=== PATIENT | female | born 1960 | race Caucasian/White ===

== ENCOUNTER 2016-11-06 10:24 | Emergency (ER) | payer MEDICARE ==
[2016-11-06] MEDS ORDERED: NS 0.9% 1000 ML* 1,000 ML IV ONE (12:38)
[2016-11-06] MEDS ORDERED: cefTRIAXone VIAL(*) 1,000 MG VIAL IVPB ONE (12:38)
[2016-11-06 13:46] VITALS: BP 123/81
--- NOTE | 2016-11-06 14:12 | UC ---
Tylor Gunn Adam, scribed for Estefania Moss DO on 11/06/16 at 1139 . Complaint Female HPI - HPI Summary HPI Summary: Pt is a 56 year old female presenting with c/o severe abdominal/flank pain on both sides (it was worse on the left earlier). She states that the pain is 15/ 10 currently and was 20/10 yesterday. She also reports hematuria and burning during urination. She also c/o fever (Tmax 100.9 F). She denies N/V/D, CP, SOB, PLASCENCIA, rash, cough, ear ache, or any other symptoms. She states that she began having UTI sx 6 days ago. Her PCP prescribed her Z-Marc because that's what she usually takes for UTI's. She states that she gets UTI's regularly (2-3 per year) ; the most recent one was approximately 6 months ago. She states that she often gets them after having sexual intercourse (as happened this time as well), although she urinates and showers afterwards. She has seen a specialist in [place]. - History Of Current Complaint Chief Complaint: UCGU Stated Complaint: FLANK PAIN Time Seen by Provider: 11/06/16 11:15 Hx Obtained From: Patient Onset/Duration: Gradual Onset, Lasting Days, Still Present Timing: Constant Severity Initially: Moderate Severity Currently: Moderate Pain Intensity: 10 Pain Scale Used: 0-10 Numeric Character: Sharp, Dull, Burning Aggravating Factor(s): Movement, Urination Alleviating Factor(s): Nothing Associated Signs And Symptoms: Positive: Fever, Back Pain - Flank pain. Negative: Nausea, Vomiting(# Of Episodes =) - Allergies/Home Medications Allergies/Adverse Reactions: Allergies Allergy/AdvReac Type Severity Reaction Status Date / Time Latex Allergy Rash Verified 04/28/16 18:01 Penicillins AdvReac Nausea And Verified 04/28/16 18:01 Vomiting Sulfa Antibiotics AdvReac Nausea And Verified 04/28/16 18:01 Vomiting NSAID's Allergy See Comment Uncoded 04/28/16 18:01 Home Medications: Home Medications Aspirin [Aspirin 81 MG TAB] 11/06/16 [History] Azithromycin TAB* [Zithromax TAB (Z-MARC) 250 mg #6 tabs] 11/06/16 [History] Ibuprofen TAB* [Advil TAB*] 11/06/16 [History] Multiple Vitamin [Multi Vitamin] 11/06/16 [History] Vitamin B Complex TAB* [Complex B-100*] 11/06/16 [History] PMH/Surg Hx/FS Hx/Imm Hx Endocrine History Of: Reports: Diabetes - type 2, Thyroid Disease Cardiovascular History Of: Reports: Cardiac Disorders - tachy; left ventr dysfunction Denies: Hypertension, Pacemaker/ICD, Congestive Heart Failure Respiratory History Of: Reports: Asthma, Bronchitis Cancer History Of: Denies: Breast Cancer - Surgical History Surgical History: Yes Surgery Procedure, Year, and Place: HYSTERECTOMY. CARDIAC CATH. tonsillectomy - Family History Known Family History: Negative: Cardiac Disease, Hypertension, Renal Disease - Social History Occupation: Disabled Lives: With Family - Daughter Alcohol Use: Occasionally Substance Use Type: None Smoking Status (MU): Former Smoker When Did the Patient Quit Smoking/Using Tobacco: 27 yrs ago Review of Systems Constitutional: Fever ENT: Negative Respiratory: Negative Cardiovascular: Negative Gastrointestinal: Abdominal Pain, Other - flank pain Genitourinary: Dysuria - Pain during urination, Hematuria, Other - Flank pain All Other Systems Reviewed And Are Negative: Yes Physical Exam Triage Information Reviewed: Yes Appearance: Well-Appearing, Pain Distress - mod-severe, Obese Vital Signs: Initial Vital Signs Temp 98 F 11/06/16 11:12 Pulse 95 11/06/16 11:12 Resp 16 11/06/16 11:12 BP 135/78 11/06/16 11:12 Pulse Ox 99 11/06/16 11:12 Vital Signs Reviewed: Yes Eyes: Positive: Conjunctiva Clear. Negative: Discharge ENT: Positive: Normal ENT inspection, Hearing grossly normal, Pharynx normal, Pharyngeal erythema Neck exam: Normal Neck: Positive: Supple Respiratory: Positive: Chest non-tender, Lungs clear, Normal breath sounds, No respiratory distress Cardiovascular: Positive: RRR, No Murmur Abdomen Description: Positive: Soft, CVA Tenderness (R), CVA Tenderness (L), Guarding. Negative: Nontender - exquisite, diffuse Bowel Sounds: Positive: Present Musculoskeletal Exam: Normal Neurological: Positive: Alert, Muscle Tone Normal Psychological Exam: Normal Psychological: Positive: Age Appropriate Behavior Skin Exam: Normal Skin: Positive: Other - Warm, dry, normal color Complaint Female Dx - Differential Dx/Diagnosis Differential Diagnosis/HQI/PQRI: Pelvic Inflammatory Disease, Renal Colic, Sexually Transmitted Disease, Ureteral Stone, Urinary Tract Infection Provider Diagnoses: hematuria, flank pain, pyelo, r/o stone - Physician Notifications Discussed Patient Care With: [facility] at 12:34. Discharge - Discharge Plan Condition: Stable Disposition: TRANS HIGHER LVL OF CARE FAC Referrals: Olga Mckinnon RN [Primary Care Provider] - Lab Results - Lab Results Lab Results: 11/06/16 11:15 POC Urine Color Other POC Urine Clarity Cloudy POC Urine pH 5.5 POC Ur Specif [place] 1.010 POC Urine Protein 2+ H POC Ur Glucose (UA) 3+ H POC Urine Ketones Negative POC Urine Blood 3+ H POC Urine Nitrite Positive H POC Urine Bilirubin Negative POC Urine Urobilinogen 0.2 POC U Leukocyte Esteras 1+ H The documentation as recorded by the Tylor skinner Adam accurately reflects the service I personally performed and the decisions made by , Estefania Moss DO.
== END 2016-11-06 14:08 | disposition short-term general hospital (02) ==
LOC: UCEAST 10:24
DX: R31.9 Hematuria, unspecified (principal); M54.5 Low back pain; N10 Acute pyelonephritis; Z87.440 Personal history of urinary (tract) infections; E11.9 Type 2 diabetes mellitus without complications; E07.9 Disorder of thyroid, unspecified; J45.909 Unspecified asthma, uncomplicated; Z88.6 Allergy status to analgesic agent; Z88.0 Allergy status to penicillin; Z88.2 Allergy status to sulfonamides; Z90.710 Acquired absence of both cervix and uterus; Z87.891 Personal history of nicotine dependence
CPT/HCPCS: 81003; 87077; 87086; 87186; 96360; 99213; G0463; J0696

== ENCOUNTER 2016-11-06 14:18 | Inpatient (IN) | payer MEDICARE ==
[2016-11-06 15:13] LABS: Hematocrit 41 % (35-47); Hemoglobin 13.7 g/dl (12.0-16.0); Mean Corpuscular HGB Conc 33 g/dl (31-36); Mean Corpuscular Hemoglobin 29 pg (27-31); Mean Corpuscular Volume 86 fL (80-97); Mean Platelet Volume 8 um3 (7.4-10.4); Red Blood Count 4.76 10^6/ul (4.0-5.4); Red Cell Distribution Width 13 % (10.5-15); White Blood Count 6.1 10^3/ul (3.5-10.8)
[2016-11-06 15:21] LABS: ALT 12 U/L (7-52); Albumin 3.8 g/dL (3.2-5.2); Alkaline Phosphatase 87 U/L (34-104); BUN/Creatinine Ratio 23.8 (8-20); Blood Urea Nitrogen 19 mg/dL (6-24); C Reactive Protein 106.03 mg/L (< 5.00); CO2 Carbon Dioxide 25 mmol/L (22-32); Calcium 9.4 mg/dL (8.6-10.3); Chloride 97 mmol/L (101-111); EGFR African American 95.1 (>60); EGFR Non-African American 73.9 (>60); Globulin 3.3 g/dL (2-4); Glucose 376 mg/dL (70-100); Lipase 16 U/L (11.0-82.0); Sodium 130 mmol/L (133-145); Total Protein 7.1 g/dL (6.4-8.9)
[2016-11-06] MEDS ORDERED: Morphine INJ* 4 MG/ML 1 ML SYRINGE IV ONE (15:28)
[2016-11-06] MEDS ORDERED: Ondansetron INJ* 2 MG/ML VIAL IV ONE (15:28)
[2016-11-06] MEDS ORDERED: Ketorolac INJ* 30 MG/ML 1 ML VIAL IV PUSH ONE (15:37)
--- NOTE | 2016-11-06 17:07 | RAD ---
INDICATION: RIGHT lower quadrant and flank pain. Cholelithiasis. Post hysterectomy for early uterine cancer. COMPARISON: April 11, 2016 ultrasound and September 04, 2014 CT. TECHNIQUE: Multidetector CT images were obtained from the lung bases to the ischial tuberosities. Evaluation of the viscera is limited without IV contrast. Multiplanar reformation. REPORT: Unremarkable visualized inferior thorax. 22 cm cephalocaudal liver without significant change. The liver is isodense to the spleen without definitive fatty infiltration. Negative for conspicuous focal hepatic lesions within limits of unenhanced exam. Small calcified stone at the fundus of the gallbladder. Negative for biliary dilatation. Unremarkable pancreas. Mild splenomegaly without change. Negative for CT abnormality of the upper GI, small bowel, retrocecal appendix, or colon. Negative for ascites, free air, or significant hernias. Normal adrenal glands. Negative for urolithiasis or hydronephrosis. Unremarkable nondilated ureters and urinary bladder. Phleboliths noted immediately adjacent to the distal ureters and ureteral vesicular junction. Post hysterectomy. No gross abnormality of the vaginal cuff. Unremarkable adnexal regions. Negative for lymphadenopathy. Mild atrophy chronic calcification of normal diameter abdominal aorta and iliac arteries. Physiologic partial distention of the IVC. Negative for suspicious osseous lesions. A few densely sclerotic foci consistent with bone islands are noted most prominent at the RIGHT acetabulum and femoral head. IMPRESSION: 1. No significant change in hepatosplenomegaly. 2. Probable small stone at the gallbladder corresponding with previous ultrasound finding. No additional CT abnormality of the gallbladder or biliary dilatation. 3. Negative for obstructive uropathy. 4. No acute abdominal pelvic process evident.
[2016-11-06 18:36] LABS: Urine Bacteria Absent (Absent); Urine Bilirubin Negative (Negative); Urine Glucose 3+(>=500 mg/dL) (Negative); Urine Nitrite Positive (Negative)
[2016-11-06] MEDS ORDERED: cefTRIAXone(*) 1 GM in NS 0.9% 50 ML* 50 ML IVPB ONE (18:52)
[2016-11-06] MEDS ORDERED: Insulin REGULAR(*) 1 UNITS UNIT SUBCUT ONE (18:58)
[2016-11-06] MEDS ORDERED: Dextrose 50% Syringe 50 ML* 25 GM/50 ML SYRINGE IV PUSH PRN (19:34)
[2016-11-06] MEDS ORDERED: Acetaminophen TAB* 325 MG PO PRN (19:40)
[2016-11-06] MEDS: NS 0.9% 1000 ML* 1,000 ML IV SCH (20:16)
[2016-11-06] MEDS ORDERED: Ibuprofen TAB* 400 MG PO PRN (20:35)
--- NOTE | 2016-11-06 21:28 | HP ---
HISTORY AND PHYSICAL: DATE OF ADMISSION: 11/06/16 PRIMARY CARE PHYSICIAN: Olga Martinez NP ATTENDING PHYSICIAN: Meir Villatoro MD * (dictation provided by Leslie Ying NP) CHIEF COMPLAINT: Flank and abdominal pain with hematuria. HISTORY OF PRESENT ILLNESS: Ms. Varma is a 56-year-old female with a past medical history of diabetes; cardiomyopathy, which is nonischemic; and fibromyalgia who presents today to the hospital with concern for bilateral flank and abdominal pain as well as hematuria. Ms. Varma states that she first started feeling unwell on Monday with hematuria and burning with urination. She suspected that she had a urinary tract infection based on her history of the same. She called her primary care provider, who prescribed her azithromycin. She took this for 2 days. She thought she was feeling better, but then this morning, she had the sudden onset of severe bilateral flank pain and lower abdominal pain and then return of hematuria. She went to [facility], where she was evaluated and suspected that she likely had pyelonephritis and therefore, she was transitioned to [facility] emergency room. The patient states she had a fever to 100.9 at home. She has had no other symptoms. She denies chest pain, shortness of breath, or nausea. She has been having poor oral intake, but only due to poor appetite. She denies diarrhea. In the emergency room, Ms. Varma is confirmed to have urinary tract infection with positive nitrites, 2+ leuk esterase. Her labs are otherwise remarkable for a C-reactive protein of 106.03. She has no leukocytosis. She is not febrile and she is not tachycardic. Her blood pressure is stable. PAST MEDICAL HISTORY: 1. History of frequent UTIs. 2. Insulin-dependent diabetes mellitus. 3. History of cardiomyopathy with left ventricular dysfunction, although she states her most recent ejection fraction was normal. 4. Arthritis. 5. Asthma. 6. Hypothyroidism. 7. Fibromyalgia. 8. JOSE ALFREDO-BSO. 9. Tonsillectomy. 10. Autonomic neuropathy. MEDICATIONS: 1. Invokana 300 mg p.o. daily. 2. Azithromycin 250 mg p.o. daily. 3. Ibuprofen 200 mg p.o. q.8 hours. 4. P.R.N. multivitamin with minerals 1 tab daily. 5. Phenazopyridine 100 mg p.o. t.i.d. 6. Vitamin B complex daily. 7. Aspirin 81 mg daily. 8. Lantus insulin 14 units subcutaneously at bedtime. 9. Levothyroxine 100 mcg p.o. daily. ALLERGIES: LATEX, PENICILLIN, and SULFA ANTIBIOTICS. FAMILY HISTORY: Mother at 86 from old age. Father at 67 related to lung cancer. She has 2 brothers and 2 sisters, both have diabetes. One of her brothers also has multiple sclerosis. SOCIAL HISTORY: No report of tobacco or drug use. The patient states she drinks infrequently and that Kathryn Quesada would be her health care proxy. REVIEW OF SYSTEMS: A 14-point review of systems was completed with Ms. Varma and all those not mentioned above were negative. PHYSICAL EXAMINATION GENERAL: Ms. Varma is sitting at the bed. She is in no acute distress. She is calm and cooperative on my examination. VITAL SIGNS: Temperature 99.4, pulse rate 99, respiratory rate 16, O2 saturation 96% on room air, and blood pressure 102/60. LUNGS: Clear to auscultation bilaterally with no accessory muscle use and good aeration. HEART: S1, S2. No murmur, rub, or gallop and regular. ABDOMEN: Soft and nontender with bowel sounds positive x4. EXTREMITIES: No cyanosis or edema. SKIN: Intact. NEURO: She is alert and she is oriented x3. She moves all extremities equally. There is no facial asymmetry or focal weakness. Extraocular movements are intact. DIAGNOSTIC STUDIES/LAB DATA: WBC 6.1, hemoglobin 13.7, hematocrit 41, and platelet count 173. Sodium 130, potassium 4.8, chloride 97, serum bicarbonate 25, BUN 19, creatinine 0.80, glucose 376, and lactic acid 1.0. CRP 106.03. Urine shows positive nitrites and 3+ leuk esterase. The patient had a CT abdomen and pelvis with oral contrast, but did refuse IV contrast. The results are as follows, "no significant change in hepatosplenomegaly, probable small stone at the gallbladder corresponding with previous ultrasound finding, no additional CT abnormalities of the gallbladder or biliary dilatation, negative for obstructive uropathy, and no acute abdominal pelvic process is evident." ASSESSMENT AND PLAN: Ms. Varma is a 56-year-old female with a past medical history of fibromyalgia and cardiomyopathy, but now with a normal ejection fraction as well as frequent urinary tract infections who presents today to the hospital with concern for flank pain and hematuria, found to have a urinary tract infection. Our plan is for observation in the hospital for the followin. Urinary tract infection: The patient is at high risk for complications due to her diabetes. She has no evidence of pyelonephritis on CT scan. She has no leukocytosis. She has no fever. Our plan will be for ceftriaxone while we await urine culture results. Lactic acid has been ordered as blood cultures. 2. Type 2 diabetes: The patient's blood pressure is quite elevated at almost 400 now. Plan to continue her home Lantus and to provide lispro sliding scale with meals. Also, plan to check hemoglobin A1c. 3. Hypothyroidism: Continue levothyroxine. 4. DVT prophylaxis: Heparin subcu. 5. Disposition: To the medical floor. TIME SPENT: Approximately 60 minutes was spent in the admission of this patient , more than half of the time was spent with the patient at the bedside reviewing the events leading up to this hospitalization, performing the physical examination, and reviewing my plan of care. LESLIE YING NP CC: Olga Martinez [place]* [id number]/[facility] #: [id number] NOEMY
[2016-11-06] MEDS: Insulin GLARGINE(*) 1 UNITS UNIT SUBCUT SCH (21:56)
[2016-11-06] MEDS: Heparin VIAL(*) 5000 UNITS/ML VIAL (FIVE THOUSAND) SUBCUT SCH (21:57)
[2016-11-07] MEDS ORDERED: Ondansetron INJ* 2 MG/ML VIAL IV PRN (03:12)
[2016-11-07] MEDS: Levothyroxine TAB* 100 MCG TAB PO SCH (06:10)
[2016-11-07] MEDS: Heparin VIAL(*) 5000 UNITS/ML VIAL (FIVE THOUSAND) SUBCUT SCH ×3 (06:10→21:44)
[2016-11-07] MEDS: NS 0.9% 1000 ML* 1,000 ML IV SCH ×2 (06:11→16:38)
[2016-11-07 06:38] LABS: Hematocrit 38 % (35-47); Hemoglobin 12.7 g/dl (12.0-16.0); Mean Corpuscular HGB Conc 34 g/dl (31-36); Mean Corpuscular Hemoglobin 29 pg (27-31); Mean Corpuscular Volume 86 fL (80-97); Mean Platelet Volume 8 um3 (7.4-10.4); Red Blood Count 4.39 10^6/ul (4.0-5.4); Red Cell Distribution Width 13 % (10.5-15); White Blood Count 8.6 10^3/ul (3.5-10.8)
[2016-11-07 07:22] LABS: EGFR Non-African American 59.9 (>60); Potassium 3.9 mmol/L (3.5-5.0)
[2016-11-07] MEDS: Aspirin EC Low Dose* 81 MG TAB.EC PO SCH (09:38)
[2016-11-07] MEDS: Insulin LISPRO* 1 UNITS UNIT SUBCUT SCH ×3 (09:38→17:38)
--- NOTE | 2016-11-07 16:26 | PN ---
Subjective Date of Service: 11/07/16 Interval History: This is a 56 yo female with IDDM who presented with dysuria, hematuria and abdominal pain. No significant leukocytosis but complaints of flank pain. Empirically treated for pyelonephritis with ceftriaxone. 2/2 blood culture bottles positive for E Coli. Today, patient reports significant improvement in her flank pain. She reports generalized fatigue. No CP, some suprapubic pain. No further hematuria. Objective Active Medications: Acetaminophen (Tylenol Tab*) 650 mg PO Q6H PRN PRN Reason: pain/fever Last Admin: 11/07/16 01:54 Dose: 650 mg Aspirin (Aspirin Ec Low Dose*) 81 mg PO DAILY [facility] Last Admin: 11/07/16 09:38 Dose: 81 mg Dextrose (D50w Syringe 50 Ml*) 12.5 gm IV PUSH .FOR FS < 60 - SS PRN PRN Reason: FS < 60 Heparin Sodium (Porcine) (Heparin Vial(*)) 5,000 units SUBCUT Q8HR [facility] Last Admin: 11/07/16 13:49 Dose: 5,000 units Ceftriaxone Sodium 1,000 mg/ (Sodium Chloride) 50 mls @ 200 mls/hr IVPB Q24H [facility] Sodium Chloride (Ns 0.9% 1000 Ml*) 1,000 mls @ 100 mls/hr IV PER RATE [facility] Last Admin: 11/07/16 06:11 Dose: 100 mls/hr Ibuprofen (Motrin Tab*) 200 mg PO Q6H PRN PRN Reason: PAIN Insulin Glargine (Lantus(*)) 42 units SUBCUT BEDTIME [facility] Last Admin: 11/06/16 21:56 Dose: 42 units Insulin Human Lispro (Humalog*) 2 units SUBCUT AC [facility] PRN Reason: Protocol Levothyroxine Sodium (Synthroid Tab*) 100 mcg PO DAILY@0600 [facility] Last Admin: 11/07/16 06:10 Dose: 100 mcg Ondansetron HCl (Zofran Inj*) 4 mg IV Q6H PRN PRN Reason: NAUSEA Last Admin: 11/07/16 03:27 Dose: 4 mg Vital Signs: Temp Pulse Resp BP Pulse Ox 99.5 F 78 16 108/51 96 11/07/16 15:38 11/07/16 15:38 11/07/16 15:38 11/07/16 15:38 11/07/16 15:38 Oxygen Devices in Use Now: None Appearance: Well appearing, in NAD Neck: NL Appearance and Movements; NL JVP Respiratory: Symmetrical Chest Expansion and Respiratory Effort, Clear to Auscultation Cardiovascular: NL Sounds; No Murmurs; No JVD, RRR Abdominal: - - abd soft, suprapubic TTP, no CVA TTP Extremities: No Edema Skin: No Rash or Ulcers Neurological: Alert and Oriented x 3 Result Diagrams: 11/07/16 06:15 11/07/16 06:15 Additional Lab and Data: Vital Signs: Temp Pulse Resp BP Pulse Ox 99.5 F 78 16 108/51 96 11/07/16 15:38 11/07/16 15:38 11/07/16 15:38 11/07/16 15:38 11/07/16 15:38 Diagnostic Imaging: CT abd/pelvis - no contrast - NAD Assess/Plan/Problems-Billing Assessment: This is a 56 yo female with IDDM, non-ischemic CM and fibromyalgia who presented with abd pain, hematuria and dysuria. Admitted with UTI, now bacteremic. - Patient Problems (1) Septicemia Comment: Secondary to EColi bacteremia of suspected urinary source Cont ceftriaxone (2) UTI (urinary tract infection) Comment: With EColi bacteremia Clinical improvement Cont ceftriaxone (3) IDDM (insulin dependent diabetes mellitus) Comment: Poorly controlled HgbA1c 10.5% Patient has been refusing SS Humalog as she is afraid of hypoglycemia She now agrees to 2U at mealtime if glucose >250mg/dl Cont Lantus Hold Invokana (4) Non-ischemic cardiomyopathy Comment: Last EF 45-50% from 2010 (5) Fibromyalgia (6) Full code status (7) DVT prophylaxis Comment: SubQ Heparin Status and Disposition: Inpatient. Anticipate dc in 1-2 days
[2016-11-07] MEDS ORDERED: Acetaminophen SUPP* 650 MG SUPP PR PRN (17:52)
[2016-11-07] MEDS ORDERED: cefTRIAXone VIAL(*) 1,000 MG in NS 0.9% 50 ML* 50 ML IVPB SCH (18:00)
--- NOTE | 2016-11-07 18:15 | ED ---
Ayan Gunn Claudia, scribed for Andrade Palmer MD on 11/06/16 at 1537 . GI/ HPI - HPI Summary HPI Summary: 56 year old female presents to the ED from [facility] with bilateral flank pain(left side more so) and RLQ pain. Pt notes sudden onset Monday this sharp pain began. Pt notes the pain has been fairly constant, she states associated Sx of hematuria, dysuria,fever, and chills. Pt has taken ibuprofen for the pain but does not like taking other pain medications. Pt denies NVD, CP, difficulty breathing, and vaginal bleeding. NO PMHx of Kidney Stones. - History of Current Complaint Chief Complaint: EDAbdPain Time Seen by Provider: 11/06/16 14:23 Stated Complaint: ABD PAIN COMING FROM [facility] Hx Obtained From: Patient Onset/Duration: Started Days Ago, Still Present Timing: Constant, Lasting Days Location of Pain: RLQ, Flank Pain Characteristics: Sharp Associated Signs and Symptoms: Positive: Fever, Hematuria, Dysuria, Abdominal Pain - Allergy/Home Medications Allergies/Adverse Reactions: Allergies Allergy/AdvReac Type Severity Reaction Status Date / Time Latex Allergy Rash Verified 04/28/16 18:01 Penicillins AdvReac Nausea And Verified 04/28/16 18:01 Vomiting Sulfa Antibiotics AdvReac Nausea And Verified 04/28/16 18:01 Vomiting NSAID's Allergy See Comment Uncoded 04/28/16 18:01 PMH/Surg Hx/FS Hx/Imm Hx Previously Healthy: Yes Endocrine/Hematology History: Reports: Hx Diabetes - type 2, Hx Thyroid Disease Cardiovascular History: Reports: Other Cardiovascular Problems/Disorders - CARDIAC CATH 11 YRS AGO Denies: Hx Congestive Heart Failure, Hx Hypertension, Hx Pacemaker/ICD Respiratory History: Reports: Hx Asthma, Other Respiratory Problems/Disorders - PNUEMONIA Musculoskeletal History: Denies: Hx Rheumatoid Arthritis, Hx Osteoporosis Sensory History: Reports: Hx Hearing Aid Psychiatric History: Denies: Hx Panic Disorder - Cancer History Cancer Type, Location and Year: hx of pre invasion ca= uterus at age 25 - Surgical History Surgery Procedure, Year, and Place: HYSTERECTOMY. CARDIAC CATH. tonsillectomy Infectious Disease History: No Infectious Disease History: Reports: Hx of Known/Suspected MRSA Denies: Hx Clostridium Difficile, Hx Hepatitis, Hx Human Immunodeficiency Virus (HIV), Hx Shingles, Hx Tuberculosis, Hx Known/Suspected VRE, Hx Known/ Suspected VRSA, History Other Infectious Disease, Traveled Outside the [place] in Last 30 Days - Family History Known Family History: Negative: Cardiac Disease, Hypertension, Renal Disease - Social History Occupation: Disabled Lives: With Family Alcohol Use: Occasionally Substance Use Type: Reports: None Hx Tobacco Use: No Smoking Status (MU): Former Smoker Review of Systems Positive: Fever, Chills Eyes: Negative Negative: Erythema ENT: Negative Negative: Sore Throat Cardiovascular: Negative Negative: Chest Pain Respiratory: Negative Negative: Shortness Of Breath, Cough Positive: Abdominal Pain - RLQ Positive: dysuria, flank pain, hematuria Musculoskeletal: Negative Negative: Myalgia Skin: Negative Negative: Rash Neurological: Negative Psychological: Normal All Other Systems Reviewed And Are Negative: Yes Physical Exam - Summary Physical Exam Summary: Constitutional: Well-developed, Well-nourished, Alert. (-) Distressed Skin: Warm, Dry HENT: Normocephalic; Atraumatic Eyes: Conjunctiva normal Neck: Musculoskeletal ROM normal neck. (-) JVD, (-) Stridor, (-) Tracheal deviation Cardio: Rhythm regular, rate normal, Heart sounds normal; Intact distal pulses; The pedal pulses are 2+ and symmetric. Radial pulses are 2+ and symmetric. (-) Murmur Pulmonary/Chest wall: Effort normal. (-) Respiratory distress, (-) Wheezes, (-) Rales Abd: Soft, (-) Distension, (-) Guarding, (-) Rebound, RLQ TENDERNESS, LEFT CVA TENDERNESS Musculoskeletal: (-) Edema Lymph: (-) Cervical adenopathy Neuro: Alert, Oriented x3 Psych: Mood and affect Normal Triage Information Reviewed: Yes Vital Signs On Initial Exam: Initial Vitals Temp Pulse Resp BP Pulse Ox 98.6 F 101 16 131/58 96 11/06/16 14:29 11/06/16 14:29 11/06/16 14:29 11/06/16 14:29 11/06/16 14:29 Vital Signs Reviewed: Yes - [place] Coma Scale Coma Scale Total: 15 Diagnostics - Vital Signs Vital Signs Temp Pulse Resp BP Pulse Ox 11/06/16 14:32 102 99 11/06/16 14:30 98.6 F 101 16 131/58 98 11/06/16 14:29 98.6 F 101 16 131/58 96 - Laboratory Lab Results: Lab Results 11/06/16 11/06/16 Range/Units 13:00 13:00 WBC 6.1 (3.5-10.8) 10^3/ul RBC 4.76 (4.0-5.4) 10^6/ul Hgb 13.7 (12.0-16.0) g/dl Hct 41 (35-47) % MCV 86 (80-97) fL MCH 29 (27-31) pg MCHC 33 (31-36) g/dl RDW 13 (10.5-15) % Plt Count 173 (150-450) 10^3/ul MPV 8 (7.4-10.4) um3 Neut % (Auto) 69.4 (38-83) % Lymph % (Auto) 20.6 L (25-47) % Creek % (Auto) 7.9 (1-9) % Eos % (Auto) 1.6 (0-6) % Baso % (Auto) 0.5 (0-2) % Absolute Neuts (auto) 4.2 (1.5-7.7) 10^3/ul Absolute Lymphs (auto) 1.3 (1.0-4.8) 10^3/ul Absolute Monos (auto) 0.5 (0-0.8) 10^3/ul Absolute Eos (auto) 0.1 (0-0.6) 10^3/ul Absolute Basos (auto) 0 (0-0.2) 10^3/ul Absolute Nucleated RBC 0.01 10^3/ul Nucleated RBC % 0.2 Sodium 130 L (133-145) mmol/L Potassium TNP Chloride 97 L (101-111) mmol/L Carbon Dioxide 25 (22-32) mmol/L Anion Gap TNP BUN 19 (6-24) mg/dL Creatinine 0.80 (0.51-0.95) mg/dL Est GFR ( Amer) 95.1 (>60) Est GFR (Non-Af Amer) 73.9 (>60) BUN/Creatinine Ratio 23.8 H (8-20) Glucose 376 H (70-100) mg/dL Calcium 9.4 (8.6-10.3) mg/dL Total Bilirubin 0.80 (0.2-1.0) mg/dL AST TNP ALT 12 (7-52) U/L Alkaline Phosphatase 87 (34-104) U/L C-Reactive Protein 106.03 H (< 5.00) mg/L Total Protein 7.1 (6.4-8.9) g/dL Albumin 3.8 (3.2-5.2) g/dL Globulin 3.3 (2-4) g/dL Albumin/Globulin Ratio 1.2 (1-3) Lipase 16 (11.0-82.0) U/L Result Diagrams: 11/07/16 06:15 11/07/16 06:15 Lab Statement: Any lab studies that have been ordered have been reviewed, and results considered in the medical decision making process. - CT CT ABD/PELVIS CT Interpretation: Positive (See Comments) - 1. No significant change in hepatosplenomegaly. 2. Probable small stone at the gallbladder corresponding with previous ultrasound finding. No additional CT abnormality of the gallbladder or biliary dilatation. 3. Negative for obstructive uropathy. CT Interpretation Completed By: Radiologist - EKG 1511 Cardiac Rate: NL EKG Rhythm: Sinus Tachycardia - 124 beats/min EKG Interpretation: No STEMI GIGU Course/Dx - Course Assessment/Plan: Pt will be admitted to [facility] for pyelonephritis - Diagnoses Provider Diagnoses: Pyelonephritis - Physician Notifications Discussed Care Of Patient With: Hopsitalist will admit to [facility] for further care. Time Discussed With Above Provider: 18:59 Discharge - Discharge Plan Condition: Fair Disposition: HOME The documentation as recorded by the Ayan skinner Claudia accurately reflects the service I personally performed and the decisions made by Spencer guaman Jerry, MD.
[2016-11-07] MEDS: Insulin GLARGINE(*) 1 UNITS UNIT SUBCUT SCH (21:38)
[2016-11-08] MEDS: NS 0.9% 1000 ML* 1,000 ML IV SCH (03:15)
[2016-11-08] MEDS: Levothyroxine TAB* 100 MCG TAB PO SCH (07:13)
[2016-11-08] MEDS: Heparin VIAL(*) 5000 UNITS/ML VIAL (FIVE THOUSAND) SUBCUT SCH ×2 (07:13→12:24)
[2016-11-08] MEDS: Aspirin EC Low Dose* 81 MG TAB.EC PO SCH (07:50)
[2016-11-08] MEDS: Insulin LISPRO* 1 UNITS UNIT SUBCUT SCH ×2 (07:50→12:43)
[2016-11-08 11:37] VITALS: BP 110/54
--- NOTE | 2016-11-08 20:55 | DS ---
AMENDED REPORT NOW INCLUDES DATES OF ADMISSION/DISCHARGE DISCHARGE SUMMARY: DATE OF ADMISSION: 11/06/16 DATE OF DISCHARGE: 11/08/16 PRIMARY CARE PROVIDER: Olga Martinez NP DISCHARGING PROVIDER: CHRISTY Botello SUPERVISING PHYSICIAN: Dr. Anamaria Bee. * (DICTATED BY CHRISTY BOTELLO) PRIMARY DISCHARGE DIAGNOSES: 1. Septicemia secondary to Escherichia coli of a urinary source. 2. Poorly controlled diabetes. SECONDARY DISCHARGE DIAGNOSES: 1. Nonischemic cardiomyopathy, last ejection fraction estimated at 45% to 50%. 2. Fibromyalgia. 3. Autonomic dysfunction. DISCHARGE MEDICATIONS: 1. Lantus 42 units daily. 2. Aspirin 81 mg p.o. daily. 3. Cipro 500 mg p.o. b.i.d. x7 days. 4. Ibuprofen 200 mg p.o. q.8 hours as needed. 5. Humalog 2 units at mealtime if glucose is greater than 200 mg/dL. 6. Levothyroxine 100 mcg p.o. daily. 7. Multivitamin 1 tablet daily. 8. Vitamin B complex 1 tablet p.o. daily. Medication changes: 1. Stop Invokana. 2. Start mealtime Humalog. 3. Start Cipro x7 days. HOSPITAL IMAGING: CT of the abdomen and pelvis shows no acute process. Probable small stone in the gallbladder without biliary dilatation. No evidence of pyelonephritis or hydronephrosis. HOSPITAL COURSE: This is a 56-year-old female with insulin-dependent diabetes, nonischemic cardiomyopathy, and fibromyalgia, who presented to the emergency department with complaints of abdominal pain, dysuria, and gross hematuria. The patient's symptoms had been present for several days prior to admission. When her symptoms first started, she notified her primary care provider who started azithromycin. She took 2 days of azithromycin and her symptoms became more severe, at which point, she presented to the emergency department for evaluation. Initial labs were fairly benign. She did not have a leukocytosis. She was noted to be hyperglycemic with glucose of 376 and her CRP was significantly elevated at 106. Initial vitals showed, she was slightly tachycardiac but afebrile and normotensive. Urinalysis was significant for blood , nitrites, leuk esterase, white blood cells, glucose, and red blood cells. The patient was subsequently admitted for urinary tract infection after failing outpatient therapy. The patient's blood culture quickly became positive eventually growing relatively sensitive E. coli. The patient had been empirically treated with ceftriaxone. First night of admission, the patient was febrile with maximum temperature reaching 103 degrees Fahrenheit. The patient has been afebrile for approximately 24 hours prior to discharge. The patient's complaints of abdominal pain and flank pain have resolved at the time of discharge and was able to tolerate a full diet. In regards to her home medications, the patient has been on Invokana for approximately 1 year and this is her second urinary tract infection since initiating the medication. Recommend at least holding of medication until she completes her antibiotics and discussing the utility of continuing it with her primary care provider in the setting of severe urinary tract infection with subsequent septicemia. Of note, the patient's diabetes is controlled with very poor hemoglobin A1c, was measured at 10.5%. She states that she has history of extreme sensitivity to rapid-acting insulin and quickly become hypoglycemic and has therefore avoided that. She is agreeable to use 2 units of Humalog at mealtime and she was given instructions to do so if her glucose is greater than 200 mg/dL prior to eating. DISPOSITION: The patient is being discharged to home where she lives alone. Recommend 7 days of Cipro and medication changes as outlined above. The patient requires close followup with her primary care provider regarding this hospital admission and for management of her diabetes. CHRISTY BOTELLO CC: Olga Martinez NP * [id number]/[facility] #: [id number] NOEMY
== END 2016-11-08 15:10 | disposition home or self-care (01) | DRG 872 ==
LOC: ED 14:18 → MED 19:09 → OBSVTOIN 11-07 08:59
PROVIDERS: ADMIT Internal Medicine; ATTEND Internal Medicine
DX: A41.51 Sepsis due to Escherichia coli [E. coli] (principal); I42.9 Cardiomyopathy, unspecified; N39.0 Urinary tract infection, site not specified; E11.65 Type 2 diabetes mellitus with hyperglycemia; M79.7 Fibromyalgia; R31.0 Gross hematuria; M19.90 Unspecified osteoarthritis, unspecified site; J45.909 Unspecified asthma, uncomplicated; Z79.1 Long term (current) use of non-steroidal anti-inflammatories (NSAID); Z79.82 Long term (current) use of aspirin; Z79.4 Long term (current) use of insulin; Z79.899 Other long term (current) drug therapy; Z88.0 Allergy status to penicillin; Z88.2 Allergy status to sulfonamides; Z91.040 Latex allergy status; Z80.1 Family history of malignant neoplasm of trachea, bronchus and lung; Z83.3 Family history of diabetes mellitus; Z84.89 Family history of other specified conditions
CPT/HCPCS: 36415; 74176; 80048; 80053; 81003; 81015; 83036; 83605; 83690; 85025; 86140; 87040; 87077; 87086; 87186; 87205; 93005; 96360; 99213; A9270-GY; G0378; G0463; J0696; J1644; J1885; J2405

== ENCOUNTER 2018-05-17 08:52 | Emergency (ER) | payer MEDICARE ==
--- NOTE | 2018-05-17 09:33 | ED ---
Lower Extremity - HPI Summary HPI Summary: Patient is a 57-year-old female who presents emergency department for left leg pain Times several days. Patient states that she was recently on bed rest for 21 weeks for a toe infection. She states she was released from bed rest about a week to 2 weeks ago. Pain is worse with ambulation and movement. Patient denies shortness of breath. No chronic low back pain without change or radiation. She notes intermittent CP which she states is normal for her. Currently not having CP. She denies any injuries. Symptoms are moderate in severity. - History of Current Complaint Chief Complaint: EDExtremityLower Stated Complaint: SENT BY DR yBrnes Seen by Provider: 05/17/18 09:03 Hx Obtained From: Patient Pain Intensity: 8 - Allergies/Home Medications Allergies/Adverse Reactions: Allergies Allergy/AdvReac Type Severity Reaction Status Date / Time acetaminophen Allergy Nausea And Verified 05/17/18 09:01 Vomiting latex Allergy Rash Verified 05/17/18 11:00 Penicillins AdvReac Nausea And Verified 05/17/18 11:00 Vomiting Sulfa (Sulfonamide AdvReac Nausea And Verified 05/17/18 11:00 Antibiotics) Vomiting NSAID's Allergy See Comment Uncoded 05/17/18 09:01 Home Medications: Home Medications Triamcinolone 0.5% OINT * 1 applic TOPICAL BID 05/17/18 [History Confirmed 05/17] PMH/Surg Hx/FS Hx/Imm Hx Previously Healthy: Yes Endocrine/Hematology History: Reports: Hx Diabetes - type 2, Hx Thyroid Disease Cardiovascular History: Reports: Other Cardiovascular Problems/Disorders - CARDIAC CATH 11 YRS AGO Denies: Hx Congestive Heart Failure, Hx Hypertension, Hx Pacemaker/ICD Respiratory History: Reports: Hx Asthma, Other Respiratory Problems/Disorders - PNUEMONIA History: Denies: Hx Renal Disease Musculoskeletal History: Denies: Hx Rheumatoid Arthritis, Hx Osteoporosis Sensory History: Denies: Hx Contacts or Glasses, Hx Hearing Aid Opthamlomology History: Denies: Hx Contacts or Glasses Psychiatric History: Denies: Hx Panic Disorder - Cancer History Cancer Type, Location and Year: PRE INVASION [id number] Hx Chemotherapy: No Hx Radiation Therapy: No - Surgical History Surgery Procedure, Year, and Place: HEART CATHERIZATION 2009. HYSTERECTOMY. LAPRASCOPIC ABDOMINAL SURGERY. TONSILS Infectious Disease History: No Infectious Disease History: Reports: Hx of Known/Suspected MRSA Denies: Hx Clostridium Difficile, Hx Hepatitis, Hx Human Immunodeficiency Virus (HIV), Hx Shingles, Hx Tuberculosis, Hx Known/Suspected VRE, Hx Known/ Suspected VRSA, History Other Infectious Disease, Traveled Outside the [place] in Last 30 Days - Family History Known Family History: Negative: Cardiac Disease, Hypertension, Renal Disease - Social History Occupation: Disabled Lives: With Family Alcohol Use: Occasionally Substance Use Type: Reports: None Hx Tobacco Use: No Smoking Status (MU): Former Smoker Review of Systems Constitutional: Negative Negative: Fever, Chills Cardiovascular: Negative Respiratory: Negative Positive: Other - left leg pain Neurological: Negative All Other Systems Reviewed And Are Negative: Yes Physical Exam Triage Information Reviewed: Yes Vital Signs On Initial Exam: Initial Vitals Temp Pulse Resp BP Pulse Ox 97.8 F 95 18 127/72 97 05/17/18 08:55 05/17/18 08:55 05/17/18 08:55 05/17/18 08:55 05/17/18 08:55 Vital Signs Reviewed: Yes Appearance: Positive: Well-Appearing - Pt lying in bed in NAD. Friend present. Skin: Positive: Warm, Dry Head/Face: Positive: Normal Head/Face Inspection Eyes: Positive: Normal, EOMI Neck: Positive: Supple Respiratory/Lung Sounds: Positive: Clear to Auscultation, Breath Sounds Present Cardiovascular: Positive: Normal, RRR Musculoskeletal: Positive: Other - Palpable pulse to left foot. Mild edema and ecchymosis to the posterior calf with pain. Spider veins to upper medial thigh. No signs of infection. Neurological: Positive: Normal, CN Intact II-III Psychiatric: Positive: Affect/Mood Appropriate Diagnostics - Vital Signs Vital Signs Temp Pulse Resp BP Pulse Ox 05/17/18 08:55 97.8 F 95 18 127/72 97 - Laboratory Lab Statement: Any lab studies that have been ordered have been reviewed, and results considered in the medical decision making process. Lower Extremity Course/Dx - Course Course Of Treatment: History presented with left leg pain. No signs of infection on exam. She is afebrile well-appearing. Type and possible DVT given patient's pain. Recent immobilization. Ultrasound is negative for DVT or acute findings, reading per radiology. Results dissipation. Suspect muscular in nature. Advised warm compresses and elevation. Motrin for pain as directed. Close follow-up with PCP Cipriano repeat ultrasound if pain persists. Patient understands and agrees with plan. - Diagnoses Differential Diagnosis/HQI/PQRI: Positive: Arthritis, Cellulitis, Contusion, DVT , Infection, Sprain, Strain Provider Diagnoses: Leg pain Discharge - Sign-Out/Discharge Documenting (check all that apply): Patient Departure - Discharge Plan Condition: Good Disposition: HOME Patient Education Materials: Leg Pain (ED) Referrals: Rosemary Sanchez [Primary Care Provider] - Additional Instructions: Schedule a follow up appointment with your PCP if pain persist Elevate leg and apply warm, moist heat Motrin for pain as directed Return to ER if symptoms change or worsen - Billing Disposition and Condition Condition: GOOD Disposition: Home
[2018-05-17 11:07] VITALS: BP 124/67
== END 2018-05-17 11:06 | disposition home or self-care (01) ==
LOC: ED 08:52
DX: M79.605 Pain in left leg (principal); E11.9 Type 2 diabetes mellitus without complications; Z88.0 Allergy status to penicillin; Z88.2 Allergy status to sulfonamides; Z87.891 Personal history of nicotine dependence
CPT/HCPCS: 99283